=== PATIENT | female | born 1955 | race Caucasian/White ===

== ENCOUNTER 2016-06-06 16:38 | Outpatient (CLI) | payer OTHER ==
[2016-06-06 17:01] LABS: Bilirubin Negative (Negative); Blood, Urine Small (Negative); Clarity Clear (Clear); Glucose, Urine (Dipstick) 100 mg/dL (Negative); Leukocyte Trace (Negative); Nitrite Positive (Negative); Protein, Urine (Dipstick) Trace mg/dL (Neg-Trace); Specific Gravity, Urine 1.015 (1.005-1.030); pH, Urine 5.5 (5.0-9.0)
[2016-06-06 17:06] LABS: Bacteria/HPF Rare-Few HPF (None Seen); Squamous Epithelial 0-3 HPF (0-3)
== END 2016-06-06 16:39 | disposition home or self-care (01) ==
LOC: MADLAB 16:38
PROVIDERS: ATTEND Family Medicine
DX: N39.0 Urinary tract infection, site not specified (principal)
CPT/HCPCS: 81001; 87086

== ENCOUNTER 2022-05-04 08:20 | Outpatient (CLI) | payer MEDICARE, OTHER | END 2022-05-04 08:21 | disposition home or self-care (01) | LOC: MADRAD 08:20 | PROVIDERS: ATTEND Registered Nurse | DX: R05.3 Chronic cough (principal) | CPT/HCPCS: 71046 ==